=== PATIENT | female | born 1980 | race Caucasian/White ===

== ENCOUNTER 2024-04-22 15:09 | Emergency (ER) | payer MEDICAID ==
[~2024-04-22] VITALS: Ht 160 cm; Wt 79.0 kg
[2024-04-22 15:18] VITALS: BP 130/82; PULSE 77; RESP 16; TEMP 98.8; O2SAT 99
== END 2024-04-22 16:31 | disposition left against medical advice (07) ==
LOC: ER 15:09
DX: R42 Dizziness and giddiness (principal); Z53.21 Procedure and treatment not carried out due to patient leaving prior to being seen by health care provider